=== PATIENT | male | born 1955 | race Caucasian/White ===

== ENCOUNTER 2016-07-10 08:30 | Inpatient (IN) | payer OTHER ==
[2016-07-10 09:18] VITALS: BMI 21.5
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
[2016-07-10] MEDS ORDERED: MAG HYDROX/AL HYDROX/SIMETH 30 ML UNIT-DOSE CUP PO PRN (14:02)
[2016-07-10] MEDS ORDERED: LOPERAMIDE HCL 2 MG CAPSULE PO PRN (14:02)
[2016-07-10] MEDS ORDERED: chlordiazePOXIDE HCL 25 MG CAPSULE PO PRN (14:02)
[2016-07-10] MEDS ORDERED: guaiFENesin/D-METHORPHAN HB 10 ML UNIT-DOSE CUPS PO PRN (14:02)
[2016-07-10] MEDS ORDERED: IBUPROFEN 400 MG TABLET (FP) PO PRN (14:02)
[2016-07-10] MEDS ORDERED: MAGNESIUM CITRATE 300 ML BOTTLE PO PRN (14:02)
[2016-07-10] MEDS ORDERED: ACETAMINOPHEN 325 MG TABLET (FP) PO PRN (14:02)
[2016-07-10] MEDS ORDERED: NICOTINE POLACRILEX 4 MG GUM BUC PRN (14:02)
[2016-07-10] MEDS ORDERED: MAGNESIUM HYDROX 2400MG/30ML ORAL SUSPENSION 30 ML CUP PO PRN (14:02)
[2016-07-10] MEDS ORDERED: MENTHOL/PHENOL 1 EACH UD MM PRN (14:02)
[2016-07-10] MEDS ORDERED: P-EPHED 60MG/TRIPROLIDI 2.5MG TABLET PO PRN (14:02)
[2016-07-10] MEDS ORDERED: chlordiazePOXIDE HCL 25 MG CAPSULE PO ONE (14:17)
[2016-07-10] MEDS ORDERED: METHADONE HCL 10 MG TABLET (FOR DETOX USE ONLY) PO ONE ×2 (14:19→23:00)
[2016-07-10] MEDS: NICOTINE 21 MG/24 HOURS TOPICAL PATCH TD SCH (14:53)
[2016-07-10 17:21] LABS: URINE APPEARANCE CLEAR; URINE BILIRUBIN NEGATIVE (NEGATIVE); URINE BLOOD NEGATIVE (NEGATIVE); URINE COLOR AMBER; URINE GLUCOSE (UA) NEGATIVE (NEGATIVE); URINE KETONE TRACE (NEGATIVE); URINE LEUK ESTERASE NEGATIVE (NEGATIVE); URINE NITRITE NEGATIVE (NEGATIVE); URINE PROTEIN NEGATIVE (NEGATIVE); URINE UROBILINOGEN 2.0 E.U/dl E.U./dl (0.2-1.0)
[2016-07-10] MEDS: chlordiazePOXIDE HCL 25 MG CAPSULE PO SCH ×2 (17:23→22:20)
[2016-07-10] MEDS: THIAMINE HCL 100 MG TABLET (FP) PO SCH (22:20)
[2016-07-10] MEDS: diphenhydrAMINE HCL 50 MG CAPSULE PO PRN (22:20)
[2016-07-10] MEDS: BACITRACIN 0.9 GM PACKET TP SCH (22:20)
[2016-07-11] MEDS: chlordiazePOXIDE HCL 25 MG CAPSULE PO SCH ×4 (05:50→23:08)
[2016-07-11] MEDS ORDERED: METHADONE HCL 10 MG TABLET (FOR DETOX USE ONLY) PO SCH (10:00)
[2016-07-11] MEDS: BACITRACIN 0.9 GM PACKET TP SCH ×2 (10:37→22:37)
[2016-07-11] MEDS: PRENATAL VITAMINS W/ FOLIC ACID TABLET (FP) PO SCH (10:37)
[2016-07-11] MEDS: NICOTINE 21 MG/24 HOURS TOPICAL PATCH TD SCH (10:37)
[2016-07-11 11:09] LABS: MCH 31.6 pg (25.7-33.7); MCHC 34.3 g/dl (32.0-35.9); MEAN PLT VOLUME 8.8 fl (7.5-11.1); PLATELET COUNT 114 K/MM3 (134-434); RDW 14.6 % (11.9-15.9); WHITE BLOOD COUNT 3.5 K/mm3 (4.0-10.0)
[2016-07-11 11:56] LABS: ALBUMIN 3.4 g/dl (3.4-5.0); ALK PHOS 114 U/L (45-117); ANION GAP 8 (8-16); BILIRUBIN,TOTAL 0.3 mg/dL (0.2-1.0); CO2 25 mmol/L (21-32); CREATININE 0.9 mg/dL (0.7-1.3); GLUCOSE,RANDOM 128 mg/dL (74-106); SGOT/AST 22 U/L (15-37); SGPT/ALT 28 U/L (12-78)
[2016-07-11 12:12] LABS: HIV 1 & 2 AB NEGATIVE; HIV 1 AGp24 NEGATIVE
--- NOTE | 2016-07-11 13:54 | PN ---
S CIWA - CIWA Score Nausea/Vomitin Muscle Tremors: 4-Moderate,w/Arms Extend Anxiety: 4-Mod. Anxious/Guarded Agitation: 4-Moderately Restless Paroxysmal Sweats: 3 Orientation: 0-Oriented Tacttile Disturbances: 1-Very Mild Itch/Numbness Auditory Disturbances: 0-None Visual Disturbances: 1-Very Mild Sensitivity Headache: 0-None Present CIWA-Ar Total Score: 20 BHS COWS - Scale Resting Pulse: 1= [place] 81-100 Sweatin= Chills/Flushing Restless Observation: 1= Difficult to Sit Still Pupil Size: 1= Pupils >than Normal Bone or Joint Aches: 1= Mild Discomfort Runny Nose/ Eye Tearin= Nasal Congestion GI Upset > 30mins: 2= Nausea/Diarrhea Tremor Observation of Outstretched Hands: 2= Slight Tremor Visible Yawning Observation: 1= 1-2x During Session Anxiety or Irritability: 2=Irritable/Anxious Goose Flesh Skin: 3=Piloerection COWS Score: 16 S Progress Note (SOAP) Subjective: nausea, sweats, i nterrupted sleep, anxiety, tremor Objective: 07/11/16 13:53 Vital Signs - 24 hr 07/10/16 07/10/16 07/11/16 14:54 17:45 00:30 Temperature 97.2 F L 98.4 F Pulse Rate 60 61 Respiratory 18 16 18 Rate Blood Pressure 127/86 107/61 07/11/16 07/11/16 07/11/16 03:30 06:24 09:59 Temperature 96.6 F L 97.9 F Pulse Rate 75 101 H Respiratory 18 18 16 Rate Blood Pressure 118/74 120/91 Laboratory Tests 07/10/16 07/10/16 07/11/16 10:20 16:00 06:10 WBC 3.5 L RBC 4.09 Hgb 12.9 Hct 37.6 MCV 92.0 MCHC 34.3 RDW 14.6 Plt Count 114 L MPV 8.8 D Sodium Potassium Chloride Carbon Dioxide Anion Gap BUN Creatinine Creat Clearance w eGFR Random Glucose Calcium Total Bilirubin AST ALT Alkaline Phosphatase Total Protein Albumin Urine Color Cece Urine Appearance Clear Urine pH 5.0 Ur Specific [place] 1.034 Urine Protein Negative Urine Glucose (UA) Negative Urine Ketones Trace H Urine Blood Negative Urine Nitrite Negative Urine Bilirubin Negative Urine Urobilinogen 2.0 e.u/dl Ur Leukocyte Esterase Negative HIV 1&2 Antibody Screen Negative HIV P24 Antigen Negative 07/11/16 06:10 WBC RBC Hgb Hct MCV MCHC RDW Plt Count MPV Sodium 139 Potassium 3.7 Chloride 106 Carbon Dioxide 25 Anion Gap 8 BUN 13 Creatinine 0.9 D Creat Clearance w eGFR > 60 Random Glucose 128 H D Calcium 8.0 L Total Bilirubin 0.3 AST 22 ALT 28 Alkaline Phosphatase 114 Total Protein 7.0 Albumin 3.4 Urine Color Urine Appearance Urine pH Ur Specific [place] Urine Protein Urine Glucose (UA) Urine Ketones Urine Blood Urine Nitrite Urine Bilirubin Urine Urobilinogen Ur Leukocyte Esterase HIV 1&2 Antibody Screen HIV P24 Antigen Assessment: 07/11/16 13:53 withdrawal sx Plan: cont detox
--- NOTE | 2016-07-11 14:06 | PN ---
BHS COWS - Scale Resting Pulse: 1= [place] 81-100 Sweatin= Chills/Flushing Restless Observation: 1= Difficult to Sit Still Pupil Size: 1= Pupils >than Normal Bone or Joint Aches: 1= Mild Discomfort Runny Nose/ Eye Tearin= Nasal Congestion GI Upset > 30mins: 2= Nausea/Diarrhea Tremor Observation of Outstretched Hands: 2= Slight Tremor Visible Yawning Observation: 1= 1-2x During Session Anxiety or Irritability: 2=Irritable/Anxious Goose Flesh Skin: 3=Piloerection COWS Score: 16
[2016-07-11] MEDS: THIAMINE HCL 100 MG TABLET (FP) PO SCH (22:37)
[2016-07-11] MEDS: diphenhydrAMINE HCL 50 MG CAPSULE PO PRN (22:37)
[2016-07-12] MEDS: chlordiazePOXIDE HCL 25 MG CAPSULE PO SCH ×2 (05:40→10:54)
[2016-07-12] MEDS: PRENATAL VITAMINS W/ FOLIC ACID TABLET (FP) PO SCH (10:54)
[2016-07-12] MEDS: METHADONE HCL 5 MG TABLET (FOR DETOX USE ONLY) PO SCH (10:54)
[2016-07-12] MEDS: BACITRACIN 0.9 GM PACKET TP SCH ×2 (10:54→22:30)
[2016-07-12] MEDS: NICOTINE 21 MG/24 HOURS TOPICAL PATCH TD SCH (10:54)
--- NOTE | 2016-07-12 11:21 | PN ---
BHS Progress Note (SOAP) Subjective: nausea, sweats, interrupted sleep, anxiety, tremor, loss of appetite Objective: 07/12/16 11:20 Vital Signs - 8 hr 07/12/16 07/12/16 07/12/16 03:30 06:00 10:55 Temperature 97.2 F L 96.9 F L Pulse Rate 64 78 Respiratory 18 16 18 Rate Blood Pressure 122/71 113/68 Laboratory Tests 07/10/16 07/10/16 07/11/16 10:20 16:00 06:10 WBC 3.5 L RBC 4.09 Hgb 12.9 Hct 37.6 MCV 92.0 MCHC 34.3 RDW 14.6 Plt Count 114 L MPV 8.8 D Sodium Potassium Chloride Carbon Dioxide Anion Gap BUN Creatinine Creat Clearance w eGFR Random Glucose Calcium Total Bilirubin AST ALT Alkaline Phosphatase Total Protein Albumin Urine Color Cece Urine Appearance Clear Urine pH 5.0 Ur Specific [place] 1.034 Urine Protein Negative Urine Glucose (UA) Negative Urine Ketones Trace H Urine Blood Negative Urine Nitrite Negative Urine Bilirubin Negative Urine Urobilinogen 2.0 e.u/dl Ur Leukocyte Esterase Negative HIV 1&2 Antibody Screen Negative HIV P24 Antigen Negative 07/11/16 06:10 WBC RBC Hgb Hct MCV MCHC RDW Plt Count MPV Sodium 139 Potassium 3.7 Chloride 106 Carbon Dioxide 25 Anion Gap 8 BUN 13 Creatinine 0.9 D Creat Clearance w eGFR > 60 Random Glucose 128 H D Calcium 8.0 L Total Bilirubin 0.3 AST 22 ALT 28 Alkaline Phosphatase 114 Total Protein 7.0 Albumin 3.4 Urine Color Urine Appearance Urine pH Ur Specific [place] Urine Protein Urine Glucose (UA) Urine Ketones Urine Blood Urine Nitrite Urine Bilirubin Urine Urobilinogen Ur Leukocyte Esterase HIV 1&2 Antibody Screen HIV P24 Antigen Assessment: 07/12/16 11:20 withdrawal sx Plan: cont detox, symptomatic relief
[2016-07-12] MEDS: CYCLOBENZAPRINE HCL 10 MG TABLET (FP) PO SCH ×2 (14:05→22:31)
[2016-07-12] MEDS: ONDANSETRON 4 MG TABLET PO SCH ×2 (14:06→22:31)
[2016-07-12] MEDS: hydrOXYzine PAMOATE 25 MG CAPSULE (FP) PO PRN (14:08)
[2016-07-12] MEDS: chlordiazePOXIDE 5 MG CAPSULE PO SCH ×2 (17:55→22:38)
[2016-07-12] MEDS: THIAMINE HCL 100 MG TABLET (FP) PO SCH (22:30)
[2016-07-12] MEDS: NAPROXEN 500 MG TABLET (FP) PO SCH (22:31)
[2016-07-12] MEDS: ZOLPIDEM TARTRATE 5 MG TABLET PO PRN (22:36)
[2016-07-13] MEDS: ONDANSETRON 4 MG TABLET PO SCH ×3 (05:29→22:23)
[2016-07-13] MEDS: CYCLOBENZAPRINE HCL 10 MG TABLET (FP) PO SCH ×3 (05:29→22:21)
[2016-07-13] MEDS: chlordiazePOXIDE 5 MG CAPSULE PO SCH ×2 (05:29→10:46)
[2016-07-13] MEDS: METHADONE HCL 5 MG TABLET (FOR DETOX USE ONLY) PO SCH (10:45)
[2016-07-13] MEDS: PRENATAL VITAMINS W/ FOLIC ACID TABLET (FP) PO SCH (10:45)
[2016-07-13] MEDS: BACITRACIN 0.9 GM PACKET TP SCH ×2 (10:45→22:21)
[2016-07-13] MEDS: NAPROXEN 500 MG TABLET (FP) PO SCH ×2 (10:45→22:21)
[2016-07-13] MEDS: NICOTINE 21 MG/24 HOURS TOPICAL PATCH TD SCH (10:46)
--- NOTE | 2016-07-13 11:27 | PN ---
BHS Progress Note (SOAP) Subjective: interrupted ssleep, sweats , lbp, Objective: 07/13/16 11:26 Vital Signs Temperature 97 F L 07/13/16 10:12 Pulse Rate 96 H 07/13/16 10:12 Respiratory Rate 18 07/13/16 10:12 Blood Pressure 123/78 07/13/16 10:12 O2 Sat by Pulse Oximetry (%) Laboratory Tests 07/10/16 07/10/16 07/11/16 10:20 16:00 06:10 WBC 3.5 L RBC 4.09 Hgb 12.9 Hct 37.6 MCV 92.0 MCHC 34.3 RDW 14.6 Plt Count 114 L MPV 8.8 D Sodium Potassium Chloride Carbon Dioxide Anion Gap BUN Creatinine Creat Clearance w eGFR Random Glucose Calcium Total Bilirubin AST ALT Alkaline Phosphatase Total Protein Albumin Urine Color Cece Urine Appearance Clear Urine pH 5.0 Ur Specific [place] 1.034 Urine Protein Negative Urine Glucose (UA) Negative Urine Ketones Trace H Urine Blood Negative Urine Nitrite Negative Urine Bilirubin Negative Urine Urobilinogen 2.0 e.u/dl Ur Leukocyte Esterase Negative RPR Titer HIV 1&2 Antibody Screen Negative HIV P24 Antigen Negative 07/11/16 07/11/16 06:10 06:10 WBC RBC Hgb Hct MCV MCHC RDW Plt Count MPV Sodium 139 Potassium 3.7 Chloride 106 Carbon Dioxide 25 Anion Gap 8 BUN 13 Creatinine 0.9 D Creat Clearance w eGFR > 60 Random Glucose 128 H D Calcium 8.0 L Total Bilirubin 0.3 AST 22 ALT 28 Alkaline Phosphatase 114 Total Protein 7.0 Albumin 3.4 Urine Color Urine Appearance Urine pH Ur Specific [place] Urine Protein Urine Glucose (UA) Urine Ketones Urine Blood Urine Nitrite Urine Bilirubin Urine Urobilinogen Ur Leukocyte Esterase RPR Titer Nonreactive HIV 1&2 Antibody Screen HIV P24 Antigen pt aox3 in nad ambulating Assessment: 07/13/16 11:26 withsdrawl sx's Plan: cont. detox increase fluids lidocaine patch /d
[2016-07-13] MEDS ORDERED: LIDOCAINE 5% TOPICAL PATCH TP ONE (11:28)
--- NOTE | 2016-07-13 12:48 | EKG ---
Test Reason : Blood Pressure : / mmHG Vent. Rate : 058 BPM Atrial Rate : 058 BPM P-R Int : 132 ms QRS Dur : 088 ms QT Int : 396 ms P-R-T Axes : 068 060 063 degrees QTc Int : 388 ms SINUS BRADYCARDIA OTHERWISE NORMAL ECG NO PREVIOUS ECGS AVAILABLE Confirmed by RUFINO COLLINS MD ([id number]) on 07/13/2016 12:48:04 PM Referred By: Jae Hernandez Confirmed By:RUFINO COLLINS MD
[2016-07-13] MEDS: chlordiazePOXIDE HCL 10 MG CAPSULE PO SCH ×2 (18:33→22:23)
[2016-07-13] MEDS: THIAMINE HCL 100 MG TABLET (FP) PO SCH (22:21)
[2016-07-13] MEDS: ZOLPIDEM TARTRATE 5 MG TABLET PO PRN (22:21)
[2016-07-14] MEDS: chlordiazePOXIDE HCL 10 MG CAPSULE PO SCH ×2 (05:40→10:14)
[2016-07-14] MEDS: ONDANSETRON 4 MG TABLET PO SCH ×3 (05:50→22:17)
[2016-07-14] MEDS: CYCLOBENZAPRINE HCL 10 MG TABLET (FP) PO SCH ×3 (05:57→22:16)
[2016-07-14] MEDS ORDERED: METHADONE HCL 10 MG TABLET (FOR DETOX USE ONLY) PO SCH (10:00)
[2016-07-14] MEDS ORDERED: LIDOCAINE 5% TOPICAL PATCH TP SCH (10:00)
[2016-07-14] MEDS: BACITRACIN 0.9 GM PACKET TP SCH ×2 (10:11→22:16)
[2016-07-14] MEDS: NAPROXEN 500 MG TABLET (FP) PO SCH ×2 (10:11→22:16)
[2016-07-14] MEDS: hydrOXYzine PAMOATE 25 MG CAPSULE (FP) PO PRN (10:11)
[2016-07-14] MEDS: PRENATAL VITAMINS W/ FOLIC ACID TABLET (FP) PO SCH (10:11)
[2016-07-14] MEDS: NICOTINE 21 MG/24 HOURS TOPICAL PATCH TD SCH (10:11)
--- NOTE | 2016-07-14 10:11 | PN ---
BHS Progress Note (SOAP) Subjective: irritable headache agitation Objective: 07/14/16 10:10 Vital Signs Temperature 97.5 F L 07/14/16 09:34 Pulse Rate 90 07/14/16 09:34 Respiratory Rate 18 07/14/16 09:34 Blood Pressure 129/85 07/14/16 09:34 O2 Sat by Pulse Oximetry (%) awake/alert ambulating no acute distress Assessment: 07/14/16 10:11 withdrawal sx Plan: continue detox increase fluids d/c in am
[2016-07-14] MEDS: THIAMINE HCL 100 MG TABLET (FP) PO SCH (22:16)
[2016-07-14] MEDS: ZOLPIDEM TARTRATE 5 MG TABLET PO PRN (22:16)
[2016-07-15] MEDS: CYCLOBENZAPRINE HCL 10 MG TABLET (FP) PO SCH (05:31)
[2016-07-15] MEDS ORDERED: METHADONE HCL 5 MG TABLET (FOR DETOX USE ONLY) PO SCH (06:00)
[2016-07-15] MEDS: ONDANSETRON 4 MG TABLET PO SCH (06:42)
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
[2016-07-15 09:33] VITALS: BP 121/77; PULSE 78; TEMP 97.3
== END 2016-07-15 09:02 | disposition home or self-care (01) | DRG 773 ==
LOC: YASAS 08:30 → Y6N 11:00
PROVIDERS: ADMIT Internal Medicine; ATTEND Internal Medicine
PROC: HZ2ZZZZ Detoxification Services for Substance Abuse Treatment (ICD-10-PCS; principal; 2016-07-10)
DX: F11.23 Opioid dependence with withdrawal (principal); F10.230 Alcohol dependence with withdrawal, uncomplicated; F14.20 Cocaine dependence, uncomplicated; F17.210 Nicotine dependence, cigarettes, uncomplicated; B18.2 Chronic viral hepatitis C; R07.9 Chest pain, unspecified; V43.52XS Car driver injured in collision with other type car in traffic accident, sequela; W22.1 Striking against or struck by automobile airbag
CPT/HCPCS: 36415; 80053; 81003; 85027; 86593; 87389; 93005; 93010

== ENCOUNTER 2022-10-12 12:19 | Inpatient (IN) | payer OTHER ==
[2022-10-12 12:46] VITALS: BMI 19.3
[2022-10-12] MEDS ORDERED: IBUPROFEN 600 MG TABLET (FP) PO PRN (15:16)
[2022-10-12] MEDS ORDERED: IBUPROFEN 400 MG TABLET (FP) PO PRN (15:16)
[2022-10-12] MEDS ORDERED: ONDANSETRON *ODT* 4 MG TABLET SL PRN (15:16)
[2022-10-12] MEDS ORDERED: POLYETHYLENE GLYCOL (HEALTHYLAX) 3350 17 GM PACKET PO PRN (15:16)
[2022-10-12] MEDS ORDERED: BISMUTH SUBSALICYLATE 524 MG/30 ML PO PRN (15:16)
[2022-10-12] MEDS ORDERED: guaiFENesin 600 MG TABLET.ER (FP) PO PRN (15:16)
[2022-10-12] MEDS ORDERED: BENZOCAINE/MENTHOL (CHLORASEPTIC ) LOZENGE MM PRN (15:16)
[2022-10-12] MEDS ORDERED: BENZONATATE 200 MG CAPSULE PO PRN (15:16)
[2022-10-12] MEDS ORDERED: ACETAMINOPHEN 325 MG TABLET (FP) PO PRN (15:16)
[2022-10-12] MEDS ORDERED: LOPERAMIDE HCL 2 MG CAPSULE PO PRN (15:16)
[2022-10-12] MEDS ORDERED: MAGNESIUM HYDROX 2400MG/30ML ORAL SUSPENSION 30 ML CUP PO PRN (15:16)
[2022-10-12] MEDS ORDERED: NALOXONE HCL 0.4 MG/ML VIAL IM PRN (15:16)
[2022-10-12] MEDS ORDERED: MAG HYDROX/AL HYDROX/SIMETH 30 ML UNIT-DOSE CUP PO PRN (15:16)
[2022-10-12] MEDS ORDERED: NALOXONE HCL (KLOXXADO) 8 MG SPRAY NS PRN (15:16)
[2022-10-12] MEDS ORDERED: DICYCLOMINE HCL 10 MG CAPSULE PO PRN (15:16)
[2022-10-12] MEDS: PRENATAL VITAMINS W/ FOLIC ACID TABLET (FP) PO SCH (18:38)
[2022-10-12] MEDS: MELATONIN 5 MG TABLETS PO SCH (22:33)
[2022-10-12] MEDS: APIXABAN 5 MG TABLET PO SCH (22:33)
[2022-10-12] MEDS: METHOCARBAMOL 500 MG TABLET PO PRN (22:33)
[2022-10-12] MEDS: THIAMINE HCL 100 MG TABLET (FP) PO SCH (22:33)
[2022-10-12] MEDS: SACUBITRIL/VALSARTAN 24 MG-26 MG TABLET PO SCH (22:35)
[2022-10-13] MEDS ORDERED: POTASSIUM CHLORIDE TABS 10 MEQ TABLET.ER (FP) PO SCH (10:00)
[2022-10-13] MEDS: SACUBITRIL/VALSARTAN 24 MG-26 MG TABLET PO SCH ×2 (10:37→22:28)
[2022-10-13] MEDS: DIGOXIN 0.125 MG TABLET PO SCH (10:37)
[2022-10-13] MEDS: FUROSEMIDE 40 MG TABLET (FP) PO SCH (10:38)
[2022-10-13] MEDS: APIXABAN 5 MG TABLET PO SCH ×2 (10:38→22:26)
[2022-10-13] MEDS: PRENATAL VITAMINS W/ FOLIC ACID TABLET (FP) PO SCH (10:38)
[2022-10-13 11:52] LABS: ALBUMIN 2.9 g/dl (3.4-5.0); CALCIUM 8.5 mg/dL (8.5-10.1)
[2022-10-13 11:53] LABS: BLOOD UREA NITROGEN 18.4 mg/dL (7-18); HEMATOCRIT 34.8 % (35.4-49); HEMOGLOBIN 12.3 GM/dL (11.7-16.9); MCH 32.6 pg (25.7-33.7); MCHC 35.3 g/dl (32.0-35.9); MEAN CELL VOLUME 92.2 fl (80-96); MEAN PLT VOLUME 8.2 fl (7.5-11.1); PLATELET COUNT 118 10^3/uL (134-434); RBC 3.77 M/mm3 (4.00-5.60); RDW 14.5 % (11.9-15.9); WHITE BLOOD COUNT 4.6 K/mm3 (4.0-10.0)
[2022-10-13 11:56] LABS: BILIRUBIN,TOTAL 0.5 mg/dL (0.2-1); CREATININE 1.1 mg/dL (0.55-1.3); TOT PROT 6.5 g/dl (6.4-8.2)
[2022-10-13] MEDS ORDERED: cloNIDine HCL 0.1 MG TABLET PO PRN (12:55)
[2022-10-13] MEDS ORDERED: methaDONE HCL 10 MG TABLET (FOR DETOX USE ONLY) PO ONE (12:55)
[2022-10-13] MEDS: METHOCARBAMOL 500 MG TABLET PO PRN (13:13)
[2022-10-13] MEDS: hydrOXYzine PAMOATE 25 MG CAPSULE (FP) PO PRN (13:13)
[2022-10-13] MEDS: THIAMINE HCL 100 MG TABLET (FP) PO SCH (22:26)
[2022-10-13] MEDS: MELATONIN 5 MG TABLETS PO SCH (22:27)
[2022-10-14] MEDS: SACUBITRIL/VALSARTAN 24 MG-26 MG TABLET PO SCH ×2 (10:18→22:37)
[2022-10-14] MEDS: DIGOXIN 0.125 MG TABLET PO SCH (10:18)
[2022-10-14] MEDS: POTASSIUM CHLORIDE TABS 20 MEQ TABLET.ER (FP) PO SCH (10:19)
[2022-10-14] MEDS: PRENATAL VITAMINS W/ FOLIC ACID TABLET (FP) PO SCH (10:19)
[2022-10-14] MEDS: METHOCARBAMOL 500 MG TABLET PO PRN (10:19)
[2022-10-14] MEDS: APIXABAN 5 MG TABLET PO SCH ×2 (10:19→22:37)
[2022-10-14] MEDS: FUROSEMIDE 40 MG TABLET (FP) PO SCH (10:22)
[2022-10-14] MEDS: MELATONIN 5 MG TABLETS PO SCH (22:37)
[2022-10-14] MEDS: THIAMINE HCL 100 MG TABLET (FP) PO SCH (22:37)
[2022-10-15] MEDS ORDERED: methaDONE HCL 10 MG TABLET (FOR DETOX USE ONLY) PO ONE (10:00)
[2022-10-15] MEDS: METHOCARBAMOL 500 MG TABLET PO PRN (10:21)
[2022-10-15] MEDS: DIGOXIN 0.125 MG TABLET PO SCH (10:21)
[2022-10-15] MEDS: PRENATAL VITAMINS W/ FOLIC ACID TABLET (FP) PO SCH (10:21)
[2022-10-15] MEDS: hydrOXYzine PAMOATE 25 MG CAPSULE (FP) PO PRN (10:21)
[2022-10-15] MEDS: SACUBITRIL/VALSARTAN 24 MG-26 MG TABLET PO SCH ×2 (10:21→22:47)
[2022-10-15] MEDS: APIXABAN 5 MG TABLET PO SCH ×2 (10:21→22:47)
[2022-10-15] MEDS: POTASSIUM CHLORIDE TABS 20 MEQ TABLET.ER (FP) PO SCH (10:24)
[2022-10-15] MEDS: FUROSEMIDE 40 MG TABLET (FP) PO SCH (10:24)
[2022-10-15] MEDS: MELATONIN 5 MG TABLETS PO SCH (22:48)
[2022-10-15] MEDS: THIAMINE HCL 100 MG TABLET (FP) PO SCH (22:48)
[2022-10-16] MEDS: PRENATAL VITAMINS W/ FOLIC ACID TABLET (FP) PO SCH (10:54)
[2022-10-16] MEDS: DIGOXIN 0.125 MG TABLET PO SCH (10:55)
[2022-10-16] MEDS: FUROSEMIDE 40 MG TABLET (FP) PO SCH (10:55)
[2022-10-16] MEDS: POTASSIUM CHLORIDE TABS 20 MEQ TABLET.ER (FP) PO SCH (10:57)
[2022-10-16] MEDS: APIXABAN 5 MG TABLET PO SCH ×2 (10:58→22:42)
[2022-10-16] MEDS: SACUBITRIL/VALSARTAN 24 MG-26 MG TABLET PO SCH ×2 (11:00→23:28)
[2022-10-16] MEDS: THIAMINE HCL 100 MG TABLET (FP) PO SCH (22:42)
[2022-10-16] MEDS: MELATONIN 5 MG TABLETS PO SCH (22:42)
[2022-10-17 09:20] VITALS: RESP 17; TEMP 98
[2022-10-17] MEDS ORDERED: methaDONE HCL 10 MG TABLET (FOR DETOX USE ONLY) PO ONE (10:00)
[2022-10-17] MEDS: POTASSIUM CHLORIDE TABS 20 MEQ TABLET.ER (FP) PO SCH (10:31)
[2022-10-17] MEDS: DIGOXIN 0.125 MG TABLET PO SCH (10:31)
[2022-10-17] MEDS: PRENATAL VITAMINS W/ FOLIC ACID TABLET (FP) PO SCH (10:31)
[2022-10-17] MEDS: APIXABAN 5 MG TABLET PO SCH (10:31)
[2022-10-17] MEDS: FUROSEMIDE 40 MG TABLET (FP) PO SCH (10:34)
[2022-10-17] MEDS: SACUBITRIL/VALSARTAN 24 MG-26 MG TABLET PO SCH (10:34)
[2022-10-17 12:47] VITALS: BP 129/80; PULSE 50
== END 2022-10-17 13:40 | disposition other institution (70) | DRG 897 ==
LOC: YASAS 12:19 → Y6N 15:16 → UNDOADMIN 15:51 → Y6N 17:52
PROVIDERS: ADMIT Allergy & Immunology; ATTEND Surgery
PROC: HZ2ZZZZ Detoxification Services for Substance Abuse Treatment (ICD-10-PCS; principal; 2022-10-12)
DX: F11.23 Opioid dependence with withdrawal (principal); F14.20 Cocaine dependence, uncomplicated; F10.230 Alcohol dependence with withdrawal, uncomplicated; Z87.891 Personal history of nicotine dependence; Z85.118 Personal history of other malignant neoplasm of bronchus and lung; Z86.79 Personal history of other diseases of the circulatory system; Z28.310 Unvaccinated for COVID-19; Z28.9 Immunization not carried out for unspecified reason
CPT/HCPCS: 36415; 80053; 80162; 82140; 85027; 86780; 87811; 93005; 93010; C9803-CS; U0003; U0005